=== PATIENT | male | born 1960 | race Two or more races ===

== ENCOUNTER 2019-04-29 07:32 | Day surgery (SDC) | payer BC ==
[~2019-04-29] VITALS: Ht 172.7 cm; Wt 96.6 kg
[2019-04-29] VITALS (8 sets, daily range): BP systolic 128–139; BP diastolic 75–88
[2019-04-29] MEDS ORDERED: NKM (08:13)
[2019-04-29] MEDS ORDERED: LR 1000ml 1,000 ML IVLG SCH (08:55)
[2019-04-29] MEDS ORDERED: LR 1000ml ONE (08:57)
[2019-04-29] MEDS ORDERED: Lidocaine 1% MPF 10mg/ml 5ml ONE (08:57)
[2019-04-29] MEDS ORDERED: Propofol 200mg/20ml IV ONE (08:57)
--- NOTE | 2019-04-29 08:58 | Anethesia Preoperative Eval ---
Anesthesia Pre-op PMH/ROS General Date of Evaluation: Apr 29, 2019 Time of Evaluation: 08:57 Anesthesiologist: Christiano ASA Score: ASA 3 Mallampati Score Class I : Soft palate, uvula, fauces, pillars visible Class II: Soft palate, uvula, fauces visible Class III: Soft palate, base of uvula visible Class IV: Only hard plate visible Mallampati Classification: Class II Surgeon: Cory Diagnosis: Colon CA Surgical Procedure: Colonoscopy Anesthesia History: none Family History: no anesthesia problems Allergies: Coded Allergies: No Known Allergies (Unverified , 04/29/19) Medications: see eMAR Patient NPO?: Yes Past Medical History Gastrointestinal/Genitourinary: Reports: other - Colon CA Other: obesity - BMI 35 PSxH Narrative: Colectomy Anesthesia Pre-op Phys. Exam Physician Exam Last Vital Signs Date Time Temp Pulse Resp B/P (MAP) Pulse Ox O2 Delivery O2 Flow Rate FiO2 04/29/19 08:43 Room Air 04/29/19 08:21 98.5 73 18 139/84 98 Constitutional: NAD Neurologic: CN 2-12 intact Cardiovascular: RRR Respiratory: CTA Gastrointestinal: S/NT/ND Airway Exam Mallampati Score: Class II MO: full ROM: full Teeth: missing, intact Anesthesia Pre-op A/P Studies Pre-op Studies: EKG - RBBB Risk Assessment & Plan Assessment: ASA 3 Plan: GA Status Change Before Surgery: No Milton Tapia MD Apr 29, 2019 08:58
[2019-04-29] MEDS ORDERED: oxyCODONE HCL/Acetaminophen 5/325mg ORAL PRN (09:00)
[2019-04-29] MEDS ORDERED: HYDROcodone/Acetamin 7.5/325 tab ORAL PRN (09:00)
[2019-04-29] MEDS ORDERED: HYDROcodone/Acetamin 5/325 tab ORAL PRN (09:00)
[2019-04-29] MEDS ORDERED: Ketorolac 30mg Inj IV PRN ×2 (09:00)
[2019-04-29] MEDS ORDERED: Midazolam 2mg/2ml Inj IVP PRN (09:00)
[2019-04-29] MEDS ORDERED: fentaNYL 100 mcg/2 mL IV PRN (09:00)
[2019-04-29] MEDS ORDERED: DiphenhydrAMINE 50mg/ml Inj IVP PRN (09:00)
[2019-04-29] MEDS ORDERED: Hydromorphone 0.5mg/0.5ml inj IVP PRN (09:00)
[2019-04-29] MEDS ORDERED: Atropine Sulfate 0.4mg/ml inj IVP PRN (09:00)
[2019-04-29] MEDS ORDERED: Labetalol 5mg/ml 20ml vial IV PRN (09:00)
[2019-04-29] MEDS ORDERED: Metoclopramide 10mg/2ml Inj IVP PRN (09:00)
[2019-04-29] MEDS ORDERED: LORazepam Inj 2mg/ml 1ml IV PRN (09:00)
[2019-04-29] MEDS ORDERED: Meperidine 50mg/ml Inj(FOR RIGORS ONLY) IVP PRN (09:00)
--- NOTE | 2019-04-29 09:01 | Immediate Post-Op Evaluation ---
Immediate Post-Op Evalulation Immediate Post-Op Evalulation Procedure: Colonoscopy Date of Evaluation: Apr 29, 2019 Time of Evaluation: 09:55 IV Fluids: 300 LR Blood Products: 0 Estimated Blood Loss: 2 Urinary Output: 0 Blood Pressure Systolic: 126 Blood Pressure Diastolic: 88 Pulse Rate: 77 Respiratory Rate: 16 O2 Sat by Pulse Oximetry: 100 Temperature (Fahrenheit): 98.2 Pain Score (1-10): 2 Nausea: No Vomiting: No Complications 0 Patient Status: awake, reacts, patent, none Hydration Status: adequate Milton Tapia MD Apr 29, 2019 09:01
--- NOTE | 2019-04-29 09:03 | 48 Hour Post Anesthesia Eval ---
Post Anesthesia Evaluation Procedure: Colonoscopy Date of Evaluation: Apr 29, 2019 Time of Evaluation: 12:08 Blood Pressure Systolic: 134 0: 87 Pulse Rate: 72 Respiratory Rate: 18 Temperature (Fahrenheit): 98.4 O2 Sat by Pulse Oximetry: 99 Airway: patent Nausea: No Vomiting: No Pain Intensity: 1 Hydration Status: adequate Cardiopulmonary Status: Stable Mental Status/LOC: patient returned to baseline Follow-up Care/Observations: 0 Post-Anesthesia Complications: 0 Follow-up care needed: ready to discharge Milton Tapia MD Apr 29, 2019 09:03
--- NOTE | 2019-04-29 09:21 | Pre-Procedure Note/Attestation ---
Pre-Procedure Note/Attestation Complete Prior to Procedure Planned Procedure: not applicable Procedure Narrative: colonoscopy Indications for Procedure Pre-Operative Diagnosis: h/o colon ca Attestation I attest that I discussed the nature of the procedure; its benefits; risks and complications; and alternatives (and the risks and benefits of such alternatives ), prior to the procedure, with the patient (or the patient's legal payroll representative). I attest that, if there was a reasonable possibility of needing a blood transfusion, the patient (or the patient's legal payroll representative) was given the [facility] standardized written summary, pursuant to the Min Patel Blood Safety Act ([place] Health and Safety Code # 1645, as amended). I attest that I re-evaluated the patient just prior to the surgery and that there has been no change in the patient's H&P, except as documented below: Luis Enrique Ray MD Apr 29, 2019 09:21
--- NOTE | 2019-04-29 09:31 | Endoscopy Procedure Note ---
Endoscopy Procedure Note General Indication for Procedure: screening Procedures Performed: colonoscopy Operative Findings/Diagnosis: diverticulosis Specimen: none Pt Tolerated Procedure Well: Yes Estimated Blood Loss: none Anesthesia Anesthesiologist: louann Anesthesia: MAC Inserted Devices Implant(s) used?: No Quality Quality of Bowel Preparation: Fair Did scope reach the cecum?: Yes Was there any complications?: No GI Core Measures 50 yrs or older w/o bx or poly: No 10yrs. F/U recommended: Yes If not recommended, why?: Above average risk 18 years or older w/prev. colo: Yes <3yrs. since last colonoscopy: No Luis Enrique Ray MD Apr 29, 2019 09:31
--- NOTE | 2019-04-29 09:59 | Short Stay Surgery H&P ---
History of Present Illness History of Present Illness Chief Complaint see recent office note HPI Anthony France is a 58 year old male who was admitted on for Colon Cancer Patient History Allergies: Coded Allergies: No Known Allergies (Unverified , 04/29/19) Medication History Scheduled No Known Medications* (NKM - No Known Medications*), 0 ., (Reported) Physical Exam Vital Signs Last Vital Signs Date Time Temp Pulse Resp B/P (MAP) Pulse Ox O2 Delivery O2 Flow Rate FiO2 04/29/19 09:55 73 13 128/83 99 Simple Mask 6 04/29/19 09:44 98.2 Plan Attestation Are the patient's medical conditions optimized for surgery? Luis Enrique Ray MD Apr 29, 2019 09:59
--- NOTE | 2019-04-29 15:15 | Procedure Note ---
DATE OF PROCEDURE: 04/29/2019 SURGEON: Luis Enrique Ray M.D. PROCEDURE: Colonoscopy. ANESTHESIA: Per Dr. Tapia. INSTRUMENT: Olympus adult flexible colonoscope. INDICATION: History of colon cancer. REASON FOR PROCEDURE: The procedure, risks, benefits, and possible consequences, including hemorrhage, aspiration, perforation and infection, and alternative treatments, were explained to the patient/legal guardian by Dr. Luis Enrique Ray and the patient/legal guardian understood and accepted these risks. PROCEDURE IN DETAIL: After informed consent was obtained, the patient was adequately sedated, first rectal exam was performed, which was normal. Then, the scope was advanced from the rectum into the cecum and subsequently to terminal ileum. Quality of prep was fair. The patient had no polyps. There was some scattered diverticula in the left colon. Anastomosis at about 25 cm from the incisors without any evidence of ulceration, no growth at the anastomosis. Retroflexion of rectum showed evidence of internal hemorrhoids. SUMMARY OF FINDINGS: 1. Anastomosis at 25, normal looking anastomosis without any ulceration or mass. 2. Scattered diverticulosis. 3. Fair prep. 4. Internal hemorrhoids. RECOMMENDATIONS: Repeat colonoscopy in two years. Luis Enrique Ray M.D. DR: BREEZY JOB#: [id number] CC:
--- NOTE | 2019-04-30 17:21 | Cardiology Report ---
APPROVED REPORT EKG Measurement Heart [id number] ND 170P7 [id number] Normal sinus rhythm Right bundle branch block Abnormal ECG
== END 2019-04-29 13:05 | disposition home or self-care (01) ==
LOC: GAS 07:32
DX: K63.89 Other specified diseases of intestine (principal); K57.90 Diverticulosis of intestine, part unspecified, without perforation or abscess without bleeding; K64.8 Other hemorrhoids; Z85.038 Personal history of other malignant neoplasm of large intestine; E66.9 Obesity, unspecified; I45.10 Unspecified right bundle-branch block; Z68.32 Body mass index [BMI] 32.0-32.9, adult
CPT/HCPCS: 45378; 93005; J2250; J2704; 94003; 94150